=== PATIENT | female | born 1985 | race Two or more races ===

== ENCOUNTER 2022-02-06 03:47 | Emergency (ER) | payer MEDICAID ==
[~2022-02-06] VITALS: Ht 160 cm; Wt 64.0 kg
[2022-02-06] MEDS ORDERED: IPRATROPIUM BROMIDE (0.02%) 0.5MG/2.5ML NEB HHN STA (05:10)
[2022-02-06] MEDS ORDERED: ALBUTEROL (0.083%) 2.5MG/3ML NEB HHN STA (05:10)
[2022-02-06 05:49] LABS: BASOPHILS % 0.2 % (0.0-2.0); EOSINOPHILS % 4.9 % (0.0-5.0); HEMATOCRIT. 37.9 % (36.0-48.0); HEMOGLOBIN. 12.6 g/dL (12.0-16.0); LYMPHOCYTES % 9.2 % (20.0-50.0); MEAN CORPUSCULAR HEMOGLOBIN 27.5 pg (28.0-32.0); MEAN PLATELET VOLUME 7.2 fl (7.4-10.4); MONOCYTES % 5.4 % (2.0-8.0); NEUTROPHILS % 80.3 % (40.0-76.0); PLATELET 426 x1000/uL (130-400); RED BLOOD CELL COUNT 4.57 mill/uL (4.2-5.4); RED CELL DISTRIBUTION WIDTH 16.6 % (11.6-14.6)
[2022-02-06 05:53] LABS: CHLORIDE 107 mEq/L (98-107)
[2022-02-06] MEDS ORDERED: POTASSIUM CHLORIDE 20MEQ TABLET SR PO NR (06:45)
[2022-02-06] MEDS ORDERED: DEXAMETHASONE 4MG TABLET PO ONE (06:45)
[2022-02-06] MEDS ORDERED: ACETAMINOPHEN WITH CODEINE 300/30MG TABLET PO ONE (07:15)
[2022-02-06] MEDS ORDERED: ALBUTEROL (0.083%) 2.5MG/3ML NEB HHN ONE (07:15)
[2022-02-06] MEDS ORDERED: IOHEXOL-350 100 ML BOTTLE ONE (10:16)
[2022-02-06] MEDS ORDERED: ALBU6.7H9 INH (10:32)
[2022-02-06] MEDS ORDERED: P50 MT (10:32)
[2022-02-06] MEDS ORDERED: AZIT250T12 MT (10:32)
[2022-02-06 11:26] VITALS: BP 115/72
== END 2022-02-06 11:28 | disposition home or self-care (01) ==
LOC: ER 03:47
DX: R06.02 Shortness of breath (principal); R05.9 Cough, unspecified; F17.290 Nicotine dependence, other tobacco product, uncomplicated; Z20.822 Contact with and (suspected) exposure to COVID-19
CPT/HCPCS: 36415; 71045; 71275; 80053; 83880; 84484; 85025; 85379; 87426; 93005; 94640; 99285; J8540; Q9967; Z7610